=== PATIENT | female | born 1930 | race Caucasian/White ===

== ENCOUNTER → 2017-05-03 | Outpatient (CLI) | payer MEDICARE, OTHER ==
[2017-05-03 18:56] LABS: BUN 17 mg/dL (7-18)
[2017-05-03 18:57] LABS: GFR (ESTIMATED) 60 ML/MIN (59-)
--- NOTE | 2017-05-03 21:35 | RADIOLOGY REPORT PS360 ---
CHEST(2 VIEWS-NOT PORTABLE) COMPARISON: PA and lateral chest 11/02/2016 HISTORY: Amiodarone toxicity TECHNIQUE: PA and lateral chest FINDINGS: The lung tan are fairly well-expanded and appear clear of infiltrate. There is mild aortic tortuosity no cardiomegaly. Again noted is a moderate sized hiatal hernia seen to the cardiac shadow. Again noted is marked degenerative change of the right shoulder with prominent spurring of the inferior lip of the glenoid and spurring of the inferior aspect of the humeral head. There are subchondral cysts in the humeral head particularly near the greater tuberosity. There is a lateral downsloping acromion process and narrowing of the AC joint. There are mild degenerative change left shoulder. There is mild dextroscoliotic curvature of the thoracic spine. IMPRESSION: Stable moderate-sized hiatal hernia, no acute chest pathology noted. 2. 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
== END ==
LOC: LAB 16:00
PROVIDERS: Physician Assistant
DX: I48.91 Unspecified atrial fibrillation (principal); Z79.899 Other long term (current) drug therapy

== ENCOUNTER 2017-06-04 17:31 | Emergency (ER) | payer MEDICARE, OTHER ==
[~2017-06-04] VITALS: Ht 160 cm; Wt 68.0 kg
[~2017-06-04 17:31] MED LIST: ADOXA50 MG PO; ALPHAGAN P 0.1%; ARICEPT5 MG PO; ASPIRIN 325MG325 MG PO; ASPIRIN325 M1 PO; ATENOLOL25 M1 PO; ATENOLOL25 MG PO; ATORVASTATIN CA20 MG PO; BACTRIM DS 8001 TAB PO; BRIMONIDINE IO; BRIMONIDINE TARTRATE; CARVEDILOL3.125 MG PO; CIPRO 250MG TA250 MG PO; CIPRO 500MG TA500 MG PO; COUMADIN 2.5MG2.5 MG PO; Ciprofloxacin250 MG PO; DETROL2 MG PO; HYDROCODONE 7.51 TAB PO; KRISS PO; LANOXIN0.125 MG PO; LEVOTHYROXIN0.112 M1 PO; LEVOTHYROXINE0.1 M1 PO; LIPITOR80 M1 PO; LORTAB 5/500 501 TAB PO; MACROBID 100MG100 M1 PO; MACROBID 100MG100 MG PO; MOTRIN600 MG PO; NORCO 325 MG-101 TAB PO; NORCO 325 MG-51 TAB PO; OXYBUTYNIN CHLO10 MG PO; PLAVIX75 MG PO; PREDNISONE 20MG20 MG PO; PRILOSEC40 MG PO; PYRIDIUM 200MG200 MG PO; PYRIDIUM100 M1 PO; PYRIDIUM100 MG PO; ROBAXIN 500 MG500 MG PO; SERTRALINE25 MG PO; SERTRALINE50 MG PO; SULFAMETHOXAZOL1 TA6 PO; SYNTHROID0.112 M2 PO; TRAZODONE 50MG50 MG PO; VICODIN HP1 TAB PO; VITAMIN C500 M3 PO
[2017-06-04] MEDS ORDERED: ELIQUIS2.5 MG PO (17:43)
[2017-06-04 18:12] LABS: LYMPH # 1.4 K/mm3 (0.7-4.5); LYMPH % 26.3 % (10-50.0)
--- OUTSIDE RECORDS SUMMARY | 2017-06-04 18:15 | External Medical Summary Rpt ---
Author Author TIAN Connors, TIAN [employer] Address Unknown Phone Unavailable Results Comprehensive metabolic 2000 panel in Serum or Plasma Observa Value Referen Units Interpr Notes Date tion ce etation Range Albumin/G 1.1 - 1.8 No Normal No Oct 3 lobulin informati informati 2017 4:02 [Mass on in on in PM ratio] in source source Serum or data data Plasma Albumin 3.4 - 5.0 gm/dL Normal No Oct 3 [Mass/vol informati 2017 4:02 ume] in on in PM Serum or source Plasma data Alkaline 46 - 116 U/L Normal No Oct 3 phosphata informati 2017 4:02 se on in PM [Enzymati source c data activity/ volume] in Serum or Plasma Bilirubin 0.2 - 1.0 mg/dL Normal No Oct 3 .total informati 2017 4:02 [Mass/vol on in PM ume] in source Serum or data Plasma Urea 7 - 18 mg/dL Normal No Oct 3 nitrogen informati 2017 4:02 [Mass/vol on in PM ume] in source Serum or data Plasma Calcium 8.5 - mg/dL Normal No Oct 3 [Mass/vol 10.1 informati 2017 4:02 ume] in on in PM Serum or source Plasma data Chloride 98 - 107 mmoL/L Normal No Oct 3 [Moles/vo informati 2017 4:02 lume] in on in PM Serum or source Plasma data Carbon 21.0 - mmoL/L Normal No Oct 3 dioxide, 32.0 informati 2017 4:02 total on in PM [Moles/vo source lume] in data Serum or Plasma Creatinin 0.55 - mg/dL Normal No Oct 3 e 1.02 informati 2017 4:02 [Mass/vol on in PM ume] in source Serum or data Plasma Estimated 59- ML/MIN No REFERENCE Oct 3 informati RANGE: 2017 4:02 glomerula on in >60 PM r source ML/MIN/1. filtratio data 73 SQUARE n rate METERSIf (GF this patient is -A merican, then multiply theresult by 1.210. Globulin 1.3 - 3.2 gm/dL Normal No May 3 [Mass/vol informati 2016 4:02 ume] in on in PM Serum source data Glucose 74 - 106 mg/dL High No May 3 [Mass/vol informati 2016 4:02 ume] in on in PM Serum or source Plasma data Potassium 3.5 - 5.1 mmoL/L Normal No May 03 inform2016 4:02 [Moles/vo on in PM lume] in source Serum or data Plasma Sodium 136 - 145 mmoL/L Normal No May 03 [Moles/vo informati 2016 4:02 lume] in on in PM Serum or source Plasma data Aspartate 15 - 37 U/L Normal No May 03 inform2016 4:02 aminotran on in PM sferase source [Enzymati data c activity/ volume] in Serum or Plasma Alanine 12 - 78 U/L Normal No May 03 aminotran informati 2016 4:02 sferase on in PM [Enzymati source c data activity/ volume] in Serum or Plasma Protein 6.4 - 8.2 gm/dL Normal No May 03 [Mass/vol informati 2016 4:02 ume] in on in PM Serum or source Plasma data Thyroxine (T4) free [Mass/volume] in Serum or Plasma Observa Value Referen Units Interpr Notes Date tion ce etation Range Thyroxine 0.76 - ng/dL Normal No May 03 (T4) 1.46 informati 2016 4:02 free on in PM [Mass/vol source ume] in data Serum or Plasma Thyrotropin [Units/volume] in Serum or Plasma Observa Value Referen Units Interpr Notes Date tion ce etation Range Thyrotrop 0.358 - uIU/ml No No May 3 in 3.740 informati informati 2017 4:02 [Units/vo on in on in PM lume] in source source Serum or data data Plasma
--- OUTSIDE RECORDS SUMMARY | 2017-06-04 18:15 | External Medical Summary Rpt | CCD ---
Author Author , TIAN Organization TIAN Address Unknown Phone [email or web address] Care Team Providers Care Focuser Name Role Phone ABIGAIL HAMEED MD, Unavailable Unavailable ABIGAIL Marlow MD, Unavailable Unavailable Luigi Marlow MD Purpose Continuity of Care Document - 02-25-2013 through 2016 Problems Code Diagnosis DOS Provider Status 305.00 305.00 03-19-2013 [facility] C 401.9 401.9 03-19-2013 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 Ac 2% ti ve EY E DR OP AT 51 10 0 No EN 07 -2 OL 90 9- Lo OL 75 20 ng 92 13 er 25 0 Ac MG ti ve TA BL ET SY 00 10 0 No NT 07 -2 HR 49 9- Lo OI 29 20 ng D 69 13 er 11 0 2 Ac MC ti G ve TA BL ET 16 10 0 No PI 10 -2 RI 30 9- Lo N 35 20 ng EC 60 13 er 9 81 Ac ti MG ve TA BL ET DI 00 10 0 No LT 40 -2 IA 94 8- Lo ZE 35 20 ng M 00 13 er HC 3 L Ac 10 ti 0 ve MG AL SO 00 10 0 No DI 40 -2 UM 97 8- Lo 10 20 ng CH 16 13 er LO 7 RI Ac DE ti ve 0. 9% SO LN Sa 63 10 1 No li 80 -2 ne 70 8- Lo 10 20 ng Fl 07 13 er us 5 h Ac 10 ti ML ve Sy ri ng e Di 55 10 0 No lt 39 -2 ia 00 8- Lo ze 56 20 ng m 60 13 er 25 5 MG Ac /5 ti ML ve Vi al AT 51 10 0 No EN 07 -2 OL 90 8- Lo OL 75 20 ng 92 13 er 25 0 Ac MG ti ve TA BL ET 66 10 1 No PI 55 -2 RI 30 8- Lo N 00 20 ng 32 10 13 er 5 1 MG Ac ti TA ve BL ET DE 00 10 1 No TR 00 -2 OL 94 8- Lo 1 54 20 ng 10 13 er MG 2 Ac TA ti BL ve ET SE 59 10 1 No RT 76 -2 RA 24 8- Lo LI 90 20 ng NE 00 13 er 3 HC Ac L ti 50 ve MG TA BL ET TR 00 10 1 No AZ 90 -2 OD 43 8- Lo ON 99 20 ng E 06 13 er 50 1 Ac MG ti ve TA BL ET Sa 63 08 0 No li 80 -1 ne 70 9- Lo 10 20 ng Fl 07 13 er us 5 h Ac 10 ti ML ve Sy ri ng e KE 00 08 0 No TO 40 -1 RO 93 9- Lo LA 79 20 ng C 50 13 er 30 1 Ac MG ti /M ve L AL Vital Signs 05-29-2013 15:23 Name Value Interpretat Reference Comment ion Range Body 97.2 [degF] Temperature BP 78 mm[Hg] Diastolic BP Systolic 142 mm[Hg] Heart 82 /min Rate/Pulse Respiratory 18 /min Rate 05-29-2013 15:20 Name Value Interpretat Reference Comment ion Range O2% 97 % 05-28-2013 16:47 Name Value Interpretat Reference Comment ion Range Height 162.56 cm Weight 82.356 kg Measured 05-28-2013 10:04 Name Value Interpretat Reference Comment ion Range Body 98.5 [degF] Temperature BP 80 mm[Hg] Diastolic BP Systolic 129 mm[Hg] Heart 121 /min Rate/Pulse O2% 96 % Respiratory 20 /min Rate Weight 0 [oz_av] Measured 03-19-2013 15:31 Name Value Interpretat Reference Comment ion Range Body 97.7 [degF] Temperature BP 81 mm[Hg] Diastolic BP Systolic 144 mm[Hg] Heart 50 /min Rate/Pulse O2% 98 % Respiratory 20 /min Rate 03-19-2013 14:38 Name Value Interpretat Reference Comment ion Range BP 68 mm[Hg] Diastolic BP Systolic 141 mm[Hg] Heart 46 /min Rate/Pulse O2% 98 % Respiratory 17 /min Rate 02-25-2013 13:15 Name Value Interpretat Reference Comment ion Range Body 98.5 [degF] Temperature BP 85 mm[Hg] Diastolic BP Systolic 152 mm[Hg] Heart 51 /min Rate/Pulse O2% 97 % Respiratory 16 /min Rate Results Labs Lab Lab Date Result Refere Interp Status Commen Order Detail nces retati t Range on Bas Metab 2000 Pnl SerPl (09-21-2016 11:33) Comment: Verify with Lab Meter: [id number] Desk Operator: [id number] Ramona Bates Glucose 107 70-130 complet BldC 017 mg/dL ed Glucomt 11:33 r-mCnc Bas Metab 2000 Pnl SerPl (09-21-2016 07:37) Comment: Verify with Lab Meter: [id number] Desk Operator: [id number] Esa Casper Glucose 93 70-130 complet BldC 017 mg/dL ed Glucomt 07:37 r-mCnc Bas Metab 1999 Pnl SerPl (09-20-2016 20:59) Comment: Meter: [id number] Desk Operator: [id number] Denver Reyes Glucose 111 70-130 complet BldC 017 mg/dL ed Glucomt 20:59 r-mCnc Bas Metab 2000 Pnl SerPl (09-20-2016 16:36) Comment: Meter: [id number] Desk Operator: [id number] Erick Szymanski Glucose 103 70-130 complet BldC 017 mg/dL ed Glucomt 16:36 r-mCnc Bas Metab 2000 Pnl SerPl (09-20-2016 12:12) Comment: Meter: [id number] Desk Operator: [id number] Erick Szymanski Glucose 104 70-130 complet BldC 017 mg/dL ed Glucomt 12:12 r-mCnc Bas Metab 1999 Pnl SerPl (09-20-2016 07:55) Comment: Meter: [id number] Desk Operator: [id number] Erick Szymanski Glucose 107 70-130 complet BldC 017 mg/dL ed Glucomt 07:55 r-mCnc Bas Metab 1999 Pnl SerPl (09-19-2016 20:45) Comment: Meter: [id number] Desk Operator: [id number] Denver Reyes Glucose 116 70-130 complet BldC 017 mg/dL ed Glucomt 20:45 r-mCnc Bas Metab 1999 Pnl SerPl (09-19-2016 16:39) Comment: Meter: [id number] Desk Operator: [id number] Bita Cruz Glucose 108 70-130 complet BldC 017 mg/dL ed Glucomt 16:39 r-mCnc Bas Metab 1999 Pnl SerPl (09-19-2016 11:33) Comment: Meter: [id number] Desk Operator: [id number] Bita Cruz Glucose 147 70-130 complet BldC 017 mg/dL ed Glucomt 11:33 r-mCnc Bas Metab 1999 Pnl SerPl (09-19-2016 07:48) Comment: Meter: [id number] Desk Operator: [id number] Bita Cruz Glucose 109 70-130 complet BldC 017 mg/dL ed Glucomt 07:48 r-mCnc Hgb+Hct Pnl Bld (09-19-2016 05:11) Hct VFr 30.1 % 34.5-44 complet Bld 017 .0 ed Auto 05:11 Hgb 9.6 11.5-15 complet Bld-mCn 017 g/dL .5 ed c 05:11 Bas Metab 2000 Pnl SerPl (09-18-2016 20:25) Comment: Meter: [id number] Desk Operator: [id number] Stacey Peterson Glucose 122 70-130 complet BldC 017 mg/dL ed Glucomt 20:25 r-mCnc Bas Metab 1999 Pnl SerPl (09-18-2016 15:57) Comment: Meter: [id number] Desk Operator: [id number] Troy Bergla D Glucose 131 70-130 complet BldC 017 mg/dL ed Glucomt 15:57 r-nc Bas Metab 1999 Pnl SerPl (09-18-2016 11:27) Comment: Meter: [id number] Desk Operator: [id number] Troy Bergla D Glucose 155 70-130 complet BldC 017 mg/dL ed Glucomt 11:27 r-nc Bas Metab 1999 Pnl SerPl (09-18-2016 06:55) Comment: Meter: [id number] Desk Operator: [id number] Troy Bergla D Glucose 144 70-130 complet BldC 017 mg/dL ed Glucomt 06:55 r-[facility] CBC (hemogram) Bld Auto (09-18-2016 05:21) Platele 185 150-450 complet t # Bld 017 10*3/mm ed Auto 05:21 3 PMV Bld 18-2 10.6 fL 6.0-12. complet Auto 017 0 ed 05:21 RDW RBC -18-2 50.0 fl 37.0-54 complet Auto 017 .0 ed 05:21 RDW RBC -18-2 14.0 % 11.3-14 complet 017 .5 ed Auto-Rt 05:21 o MCHC -18-2 32.5 32.0-36 complet RBC 017 g/dL .0 ed Auto-mC 05:21 nc MCH RBC 18-2 31.8 pg 27.0-31 complet Qn 017 .0 ed Auto 05:21 MCV RBC 18-2 97.6 fL 80.0-99 complet Auto 017 .0 ed 05:21 Hct VFr 18-2 32.9 % 34.5-44 complet Bld 017 .0 ed Auto 05:21 Hgb -18-2 10.7 11.5-15 complet Bld-mCn 017 g/dL .5 ed c 05:21 RBC # 02-18-2 3.37 3.89-5. complet Bld 017 10*6/mm 14 ed Auto 05:21 3 WBC -18-2 10.53 3.50-10 complet nRBC 017 10*3/mm .80 ed cor # 05:21 3 Bld Bas Metab 1999 Pnl SerPl (09-18-2016 05:21) Comment: [employer] Guidelines Comment: Comment: Stage Description GFR Comment: 1 Normal or High 90+ Comment: 2 Mild decrease 60-89 Comment: 3 Moderate decrease 30-59 Comment: 4 Severe decrease 15-29 Comment: 5 Kidney failure <15 Anion 18-2 4.0 3.0-11. complet Gap3 017 mmol/L 0 ed SerPl-s 05:21 Cnc BUN/Cre 15.7 7.0-25. complet at 017 0 ed SerPl 05:21 GFR/BSA 80 >60 complet .pred 017 mL/min/ ed SerPl 05:21 1.73 MDRD-Ar VRat Calcium 8.7 8.7-10. complet 017 mg/dL 4 ed XXX-sCn 05:21 c CO2 29.0 20.0-31 complet SerPl-s 017 mmol/L .0 ed Cnc 05:21 Chlorid 103 99-109 complet e 017 mmol/L ed SerPl-s 05:21 Cnc Potassi 4.2 3.5-5.5 complet um 017 mmol/L ed Bld-sCn 05:21 c Sodium 09-18- 136 132-146 complet Bld-sCn 017 mmol/L ed c 05:21 Creat 0.70 0.60-1. complet Bld-mCn 017 mg/dL 30 ed c 05:21 BUN 09-18- 11 9-23 complet Bld-mCn 017 mg/dL ed c 05:21 Glucose 09-18- 175 70-100 complet 017 mg/dL ed Bld-mCn 05:21 c Bas Metab 1999 Pnl SerPl (09-17-2016 21:24) Comment: Meter: [id number] Desk Operator: [id number] Garrettrvteaganu Claire Glucose 219 70-130 complet BldC 017 mg/dL ed Glucomt 21:24 r-mCnc Bas Metab 1999 Pnl SerPl (09-17-2016 18:26) Comment: Meter: [id number] Desk Operator: [id number] Niya Bell Glucose 150 70-130 complet BldC 017 mg/dL ed Glucomt 18:26 r-mCnc Bacteria Tiss Aerobe Cult (09-17-2016 11:32) Gram No complet Stn XXX 017 organis ed 11:32 ms seen Gram Occasio complet Stn XXX 017 nal ed 11:32 WBCs seen Bacteri No complet a XXX 017 growth ed Aerobe 11:32 at 14 Cult days Potassium Bld-sCnc (09-17-2016 10:04) Potassi 3.92 3.5-5.3 complet um 017 mmol/L ed BldA-sC 10:04 nc UA Dipstick Pnl Ur (09-02-2016 16:18) Comment: Urine microscopic not indicated. Urobili 0.2 0.2 - complet nogen 017 E.U./dL 1.0 ed Ur Ql 16:18 E.U./dL Strip Nitrite [id number] Negativ complet Ur Ql 017 09 e ed Strip 16:18 Negativ e SCT Leukocy [id number] Negativ complet te 017 09 e ed esteras 16:18 Negativ e Ur Ql e SCT Strip.a uto Prot Ur [id number] Negativ complet Ql 017 09 e ed Strip 16:18 Negativ e SCT Hgb Ur [id number] Negativ complet Ql 017 09 e ed Strip.a 16:18 Negativ uto e SCT Bilirub [id number] Negativ complet Ur Ql 017 09 e ed Strip 16:18 Negativ e SCT Ketones 3908850 Negativ complet Ur Ql 017 09 e ed Strip 16:18 Negativ e SCT Glucose 9634048 Negativ complet Ur 017 09 e ed Strip-m 16:18 Negativ Cnc e SCT Sp Gr 1.007 1.001-1 complet Ur 017 .030 ed Strip 16:18 pH Ur 5.5 5.0-8.0 complet Strip.a 017 ed uto 16:18 Clarity [id number] Clear complet Ur 017 01 ed 16:18 Clear SCT Color [id number] Yellow, complet Ur 017 09 Straw ed 16:18 Yellow color SCT Hgb A1c Bld (09-02-2016 12:16) Comment: The [place] [employer] recommends maintenance of Hemoglobin A1C at 7.0% or lower. Goals for Hemoglobin A1C reduction may need to be modified if hypoglycemia is a problem. Hgb A1c 5.90 % 4.80-5. complet MFr 017 60 ed Bld 12:16 Bas Metab 2000 Pnl SerPl (09-02-2016 12:16) Comment: National [employer] Guidelines Comment: Comment: Stage Description GFR Comment: 1 Normal or High 90+ Comment: 2 Mild decrease 60-89 Comment: 3 Moderate decrease 30-59 Comment: 4 Severe decrease 15-29 Comment: 5 Kidney failure <15 Anion 3.0 3.0-11. complet Gap3 017 mmol/L 0 ed SerPl-s 12:16 Cnc BUN/Cre 24.0 7.0-25. complet at 017 0 ed SerPl 12:16 GFR/BSA 53 >60 complet .pred 017 mL/min/ ed SerPl 12:16 1.73 MDRD-Ar VRat Calcium 10.3 8.7-10. complet 017 mg/dL 4 ed XXX-sCn 12:16 c CO2 33.0 20.0-31 complet SerPl-s 017 mmol/L .0 ed Cnc 12:16 Chlorid 100 99-109 complet e 017 mmol/L ed SerPl-s 12:16 Cnc Potassi 4.6 3.5-5.5 complet um 017 mmol/L ed Bld-sCn 12:16 c Sodium 136 132-146 complet Bld-sCn 017 mmol/L ed c 12:16 Creat 1.00 0.60-1. complet Bld-mCn 017 mg/dL 30 ed c 12:16 BUN 24 9-23 complet Bld-mCn 017 mg/dL ed c 12:16 Glucose 66 70-100 complet 017 mg/dL ed Bld-mCn 12:16 c UA Dipstick Pnl Ur (09-02-2016 12:16) Urobili 0.2 0.2 - complet nogen 017 E.U./dL 1.0 ed Ur Ql 12:16 E.U./dL Strip Nitrite [id number] Negativ complet Ur Ql 017 09 e ed Strip 12:16 Negativ e SCT Leukocy 4244638 Negativ complet te 017 04 e ed esteras 12:16 Small e Ur Ql SCT Strip.a uto Prot Ur 3212489 Negativ complet Ql 017 09 e ed Strip 12:16 Negativ e SCT Hgb Ur 8324064 Negativ complet Ql 017 09 e ed Strip.a 12:16 Negativ uto e SCT Bilirub 3062223 Negativ complet Ur Ql 017 09 e ed Strip 12:16 Negativ e SCT Ketones 0152964 Negativ complet Ur Ql 017 09 e ed Strip 12:16 Negativ e SCT Glucose 4224465 Negativ complet Ur 017 09 e ed Strip-m 12:16 Negativ Cnc e SCT Sp Gr 1.007 1.001-1 complet Ur 017 .030 ed Strip 12:16 pH Ur <= 5.0 5.0-8.0 complet Strip.a 017 ed uto 12:16 Clarity [id number] Clear complet Ur 017 01 ed 12:16 Clear SCT Color 5126532 Yellow, complet Ur 017 09 Straw ed 12:16 Yellow color SCT UA Microscopic Pnl # Ur Auto (09-02-2016 12:16) Ref lab Automat complet test 017 ed ed method 12:16 Microsc opy Hyaline 0-6 0-6 complet Casts 017 /LPF ed Ur Ql 12:16 Auto [place] None None complet s 017 Seen Seen, ed #/area 12:16 /HPF 0-2 UrnS HPF Bacteri [id number] None complet a Ur Ql 017 00 Not Seen, ed Auto 12:16 detecte Trace d SCT /HPF WBC Ur 02-02-2 3-5 None complet Ql Auto 017 /HPF Seen ed 12:16 RBC # 02-02-2 0-2 None complet Ur 017 /HPF Seen, ed 12:16 0-2 CBC (hemogram) Bld Auto (09-02-2016 12:16) Platele 09-02-2 213 150-450 complet t # Bld 017 10*3/mm ed Auto 12:16 3 PMV Bld 09-02-2 10.5 fL 6.0-12. complet Auto 017 0 ed 12:16 RDW RBC 02-02-2 49.9 fl 37.0-54 complet Auto 017 .0 ed 12:16 RDW RBC 02-02-2 13.9 % 11.3-14 complet 017 .5 ed Auto-Rt 12:16 o MCHC -02-2 32.9 32.0-36 complet RBC 017 g/dL .0 ed Auto-mC 12:16 nc MCH RBC -02-2 32.1 pg 27.0-31 complet Qn 017 .0 ed Auto 12:16 MCV RBC -02-2 97.7 fL 80.0-99 complet Auto 017 .0 ed 12:16 Hct VFr 09-02-2 43.2 % 34.5-44 complet Bld 017 .0 ed Auto 12:16 Hgb -02-2 14.2 11.5-15 complet Bld-mCn 017 g/dL .5 ed c 12:16 RBC # 02-02-2 4.42 3.89-5. complet Bld 017 10*6/mm 14 ed Auto 12:16 3 WBC --2 5.68 3.50-10 complet nRBC 017 10*3/mm .80 ed cor # 12:16 3 Bld COMPREHENSIVE METABOLIC PANEL (05-28-2013 10:20) Glucose 94 74-106 complet 013 mg/dL ed Bld-mCn 10:20 c BUN 13 7-18 complet Bld-mCn 013 mg/dL ed c 10:20 Creat 0.9 0.6-1.0 complet SerPl-m 013 mg/dL ed Cnc 10:20 ESTIMAT 63 50-200 complet ED 013 ML/MIN ed CREATIN 10:20 INE CLEARAN CE GFR 60 59- complet (ESTIMA 013 ML/MIN ed BHARTI) 10:20 Sodium 141 136-145 complet SerPl-s 013 mmoL/L ed Cnc 10:20 Potassi 4.2 3.5-5.1 complet um 013 mmoL/L ed SerPl-s 10:20 Cnc Chlorid 105 98-107 complet e 013 mmoL/L ed SerPl-s 10:20 Cnc CO2 29 21.0-32 complet SerPl-s 013 mmoL/L .0 ed Cnc 10:20 Calcium 8.9 8.5-10. complet 013 mg/dL 1 ed SerPl-m 10:20 Cnc Prot 6.9 6.4-8.2 complet SerPl-m 013 gm/dL ed Cnc 10:20 Albumin 3.3 3.4-5.0 complet 013 gm/dL ed SerPl-m 10:20 Cnc Globuli 3.6 1.3-3.2 complet n 013 gm/dL ed Ser-mCn 10:20 c Albumin 0.9 UNK 1.1-1.8 complet /Glob 013 ed SerPl-m 10:20 Rto Bilirub 0.5 0.2-1.0 complet 013 mg/dL ed SerPl-m 10:20 Cnc AST 21 U/L 15-37 complet SerPl-c 013 ed Cnc 10:20 ALT 30 U/L 30-65 complet SerPl-c 013 ed Cnc 10:20 ALP 118 U/L 50-136 complet SerPl-c 013 ed Cnc 10:20 THYROID STIM HORMONE (05-28-2013 10:20) THYROID 3.27 0.358-3 complet STIM 013 uIU/ml .740 ed HORMONE 10:20 BNP Bld-mCnc (05-28-2013 10:20) BNP 152 0-100 complet Bld-mCn 013 pg/mL ed c 10:20 CBC with AUTO DIFF (05-28-2013 10:20) WBC # 10--2 4.3 4.8-10. complet Bld 013 K/MM3 8 ed Auto 10:20 RBC # 05-28-2 4.19 4.2-5.4 complet Bld 013 M/mm3 ed Auto 10:20 Hgb 05-28-2 12.3 12.2-16 complet Bld-mCn 013 g/dL .2 ed c 10:20 Hct Fr 38.5 % 37.0-47 complet Bld 013 .0 ed 10:20 MCV RBC 92.0 fl 82.2-97 complet 013 .8 ed 10:20 MCH RBC 29.3 pg 27-31.2 complet Qn 013 ed Auto 10:20 MEAN 31.8 31.8-35 complet CORPUSC 013 g/dl .4 ed ULAR 10:20 HGB CONC RDW RBC 15.5 % 11.5-17 complet Auto 013 .5 ed 10:20 Platele 239 142-424 complet t Bld 013 K/mm3 ed Ql 10:20 Manual MEAN 7.6 fl 7.4-10. complet PLATELE 013 4 ed T 10:20 VOLUME Granulo 05-28-2 55.4 % 37.0-80 complet cytes 013 .0 ed Fr Bld 10:20 Auto LYMPH % 05-28-2 29.4 % 10-50.0 complet 013 ed 10:20 Monocyt 05-28-2 9.0 % 1.7-9.3 complet es Fr 013 ed Bld 10:20 Auto Eosinop 05-28-2 4.8 % 0.1-12. complet hil Fr 013 0 ed Bld 10:20 Auto Basophi 05-28-2 1.4 % 0.1-2.0 complet ls Fr 013 ed Bld 10:20 Auto Granulo 05-28-2 2.4 1.8-7.8 complet cytes # 013 K/mm3 ed Bld 10:20 Auto Lymphoc 05-28-2 1.3 0.7-4.5 complet ytes Fr 013 K/mm3 ed Bld 10:20 Auto Monocyt 05-28-2 0.4 0.1-1.0 complet es # 013 K/mm3 ed Bld 10:20 Auto Eosinop 28-2 0.2 0.0-0.4 complet hil # 013 K/mm3 ed Bld 10:20 Auto Basophi 28-2 0.1 0-0.2 complet ls # 013 K/MM3 ed Bld 10:20 Auto COMPREHENSIVE METABOLIC PANEL (03-19-2013 13:45) Glucose 03-19-2 90 74-106 complet 013 mg/dL ed Bld-mCn 13:45 c BUN 03-19-2 10 7-18 complet Bld-mCn 013 mg/dL ed c 13:45 Creat 03-19-2 0.9 0.6-1.0 complet SerPl-m 013 mg/dL ed Cnc 13:45 ESTIMAT 03-19-2 65 50-200 complet ED 013 ML/MIN ed CREATIN 13:45 INE CLEARAN CE GFR 60 59- complet (ESTIMA 013 ML/MIN ed BHARTI) 13:45 Sodium 139 136-145 complet SerPl-s 013 mmoL/L ed Cnc 13:45 Potassi 4.0 3.5-5.1 complet um 013 mmoL/L ed SerPl-s 13:45 Cnc Chlorid 03-19- 103 98-107 complet e 013 mmoL/L ed SerPl-s 13:45 Cnc CO2 03-19- 31 21.0-32 complet SerPl-s 013 mmoL/L .0 ed Cnc 13:45 Calcium 03-19-2 8.7 8.5-10. complet 013 mg/dL 1 ed SerPl-m 13:45 Cnc Prot 03-19-2 7.4 6.4-8.2 complet SerPl-m 013 gm/dL ed Cnc 13:45 Albumin 03-19-2 3.5 3.4-5.0 complet 013 gm/dL ed SerPl-m 13:45 Cnc Globuli 03-19-2 3.9 1.3-3.2 complet n 013 gm/dL ed Ser-mCn 13:45 c Albumin 03-19-2 0.9 UNK 1.1-1.8 complet /Glob 013 ed SerPl-m 13:45 Rto Bilirub 03-19-2 0.6 0.2-1.0 complet 013 mg/dL ed SerPl-m 13:45 Cnc AST -19-2 18 U/L 15-37 complet SerPl-c 013 ed Cnc 13:45 ALT 08-19-2 30 U/L 30-65 complet SerPl-c 013 ed Cnc 13:45 ALP -19-2 133 U/L 50-136 complet SerPl-c 013 ed Cnc 13:45 CBC with AUTO DIFF (03-19-2013 13:45) WBC # 08-19-2 4.5 4.8-10. complet Bld 013 K/MM3 8 ed Auto 13:45 RBC # 08-19-2 4.24 4.2-5.4 complet Bld 013 M/mm3 ed Auto 13:45 Hgb 08-19-2 12.4 12.2-16 complet Bld-mCn 013 g/dL .2 ed c 13:45 Hct Fr 03-19-2 38.6 % 37.0-47 complet Bld 013 .0 ed 13:45 MCV RBC 19-2 91.2 fl 82.2-97 complet 013 .8 ed 13:45 MCH RBC 03-19-2 29.2 pg 27-31.2 complet Qn 013 ed Auto 13:45 MEAN -19-2 32.0 31.8-35 complet CORPUSC 013 g/dl .4 ed ULAR 13:45 HGB CONC RDW RBC -19-2 14.5 % 11.5-17 complet Auto 013 .5 ed 13:45 Platele -19-2 255 142-424 complet t Bld 013 K/mm3 ed Ql 13:45 Manual MEAN 03-19-2 7.7 fl 7.4-10. complet PLATELE 013 4 ed T 13:45 VOLUME Granulo -19-2 58.4 % 37.0-80 complet cytes 013 .0 ed Fr Bld 13:45 Auto LYMPH % -19-2 29.3 % 10-50.0 complet 013 ed 13:45 Monocyt 08-19-2 7.3 % 1.7-9.3 complet es Fr 013 ed Bld 13:45 Auto Eosinop -19-2 3.5 % 0.1-12. complet hil Fr 013 0 ed Bld 13:45 Auto Basophi -19-2 1.4 % 0.1-2.0 complet ls Fr 013 ed Bld 13:45 Auto Granulo 08-19-2 2.6 1.8-7.8 complet cytes # 013 K/mm3 ed Bld 13:45 Auto Lymphoc -19-2 1.3 0.7-4.5 complet ytes Fr 013 K/mm3 ed Bld 13:45 Auto Monocyt 08-19-2 0.3 0.1-1.0 complet es # 013 K/mm3 ed Bld 13:45 Auto Eosinop -19-2 0.2 0.0-0.4 complet hil # 013 K/mm3 ed Bld 13:45 Auto Basophi -19-2 0.1 0-0.2 complet ls # 013 K/MM3 ed Bld 13:45 Auto URINALYSIS/COMPLETE (02-25-2013 12:30) URINE 02-25-2 YELLOW YELLOW complet COLOR 013 ed 12:30 URINE 02-25-2 Sl CLEAR complet APPEARA 013 Cloudy ed NCE 12:30 URINE 02-25-2 NEGATIV NEG complet GLUCOSE 013 E ed - 12:30 DIPSTIC K URINE 02-25-2 NEGATIV NEG complet BILIRUB 013 E ed IN - 12:30 DIPSTIC K URINE 02-25-2 NEGATIV NEG complet KETONE 013 E mg/dL ed 12:30 URINE 02-25-2 Less 1.005-1 complet SPECIFI 013 than or .030 ed C 12:30 equal GRAVITY to 1.005 URINE 02-25-2 NEGATIV NEG complet BLOOD 013 E ed 12:30 URINE 02-25-2 6.0 UNK 5.0-8.5 complet PH 013 ed 12:30 URINE 02-25-2 NEGATIV NEG complet PROTEIN 013 E mg/dL ed - 12:30 DIPSTIC K URINE 02-25-2 0.2 NEG complet UROBILI 013 E.U./dL ed NOGEN - 12:30 DIPSTIC K URINE 02-25-2 NEGATIV NEG complet NITRATE 013 E ed - 12:30 DIPSTIC K URINE 02-25-2 2+ NEG complet LEUK 013 ed ESTERAS 12:30 E Encounters Encounter Start End Date Code Location Performer Type Date Inpatient IMP Mykel Ele ([place]) 3 10:31 3 15:27 [facility] Emergency ROSALBA HAMEED (ER) 3 13:53 3 15:37 [facility] Emergency ROSALBA Lucero (ER) 3 12:49 3 13:21 [facility] [place]
--- OUTSIDE RECORDS SUMMARY | 2017-06-04 18:15 | External Medical Summary Rpt | CCD ---
Demographics Preferred Language Salvadorean Marital Status Unknown Scientologist Affiliation Unknown Race Unknown Ethnic Group Unknown Author Author , TIAN OVERTON Address Unknown Phone Immunization Unable to retrieve immunization data due to connection failure with Immunization Registry. Please try again later.
--- OUTSIDE RECORDS SUMMARY | 2017-06-04 18:15 | External Medical Summary Rpt | CCD ---
Author Author [employer]ent Organization Con[employer] Address Unknown Phone Unavailable Purpose Continuity of Care Document - through 2016
--- OUTSIDE RECORDS SUMMARY | 2017-06-04 18:15 | External Medical Summary Rpt | CCD ---
Demographics Preferred Language Djiboutian Marital Status Unknown Hindu Affiliation Unknown Race Unknown Ethnic Group Unknown Author Author , TIAN OVERTON Address Unknown Phone Immunization Unable to retrieve immunization data due to connection failure with Immunization Registry. Please try again later.
--- OUTSIDE RECORDS SUMMARY | 2017-06-04 18:15 | External Medical Summary Rpt | CCD ---
Author Author , TIAN Organization TIAN Address Unknown Phone [email or web address] Care Team Providers Care Press Department Manager Name Role Phone ABIGAIL HAMEED MD, Unavailable Unavailable ABIGAIL Marlow MD, Unavailable Unavailable Luigi Marlow MD Purpose Continuity of Care Document - 02-25-2013 through 2016 Problems Code Diagnosis DOS Provider Status 305.00 305.00 03-19-2013 [facility] C 401.9 401.9 03-19-2013 [facility] 427.89 427.89 03-19-2013 [facility] DYSRHYTHMIA [facility] S NEC 733.6 733.6 03-19-2013 [facility] 244.9 Hypothyroid [facility] 272.4 Hyperlipide [facility] [id number] History of [facility] [id number] Active [facility] [id number] Chronic [facility] Allergies, Adverse Reactions, Alerts Type Drug Allergy [...] (09-21-2016 11:33) Comment: Verify with Lab Meter: [id number] Box Sealing Inspector: [id number] Ramona Bates Glucose 107 70-130 complet BldC 017 mg/dL ed Glucomt 11:33 r-mCnc Bas Metab 2000 Pnl SerPl (09-21-2016 07:37) Comment: Verify with Lab Meter: [id number] Box Sealing Inspector: [id number] Esa Casper Glucose 93 70-130 complet BldC 017 mg/dL ed Glucomt 07:37 r-mCnc Bas Metab 1999 Pnl SerPl (09-20-2016 20:59) Comment: Meter: [id number] Box Sealing Inspector: [id number] Denver Reyes Glucose 111 70-130 complet BldC 017 mg/dL ed Glucomt 20:59 r-mCnc Bas Metab 2000 Pnl SerPl (09-20-2016 16:36) Comment: Meter: [id number] Box Sealing Inspector: [id number] Erick Szymanski Glucose 103 70-130 complet BldC 017 mg/dL ed Glucomt 16:36 r-mCnc Bas Metab 2000 Pnl SerPl (09-20-2016 12:12) Comment: Meter: [id number] Box Sealing Inspector: [id number] Erick Szymanski Glucose 104 70-130 complet BldC 017 mg/dL ed Glucomt 12:12 r-mCnc Bas Metab 1999 Pnl SerPl (09-20-2016 07:55) Comment: Meter: [id number] Box Sealing Inspector: [id number] Erick Szymanski Glucose 107 70-130 complet BldC 017 mg/dL ed Glucomt 07:55 r-mCnc Bas Metab 1999 Pnl SerPl (09-19-2016 20:45) Comment: Meter: [id number] Box Sealing Inspector: [id number] Denver Reyes Glucose 116 70-130 complet BldC 017 mg/dL ed Glucomt 20:45 r-mCnc Bas Metab 1999 Pnl SerPl (09-19-2016 16:39) Comment: Meter: [id number] Box Sealing Inspector: [id number] Bita Cruz Glucose 108 70-130 complet BldC 017 mg/dL ed Glucomt 16:39 r-mCnc Bas Metab 1999 Pnl SerPl (09-19-2016 11:33) Comment: Meter: [id number] Box Sealing Inspector: [id number] Bita Cruz Glucose 147 70-130 complet BldC 017 mg/dL ed Glucomt 11:33 r-mCnc Bas Metab 1999 Pnl SerPl (09-19-2016 07:48) Comment: Meter: [id number] Box Sealing Inspector: [id number] Bita Cruz Glucose 109 70-130 complet BldC 017 mg/dL ed Glucomt 07:48 r-mCnc Hgb+Hct Pnl Bld (09-19-2016 05:11) Hct VFr 30.1 % 34.5-44 complet Bld 017 .0 ed Auto 05:11 Hgb 9.6 11.5-15 complet Bld-mCn 017 g/dL .5 ed c 05:11 Bas Metab 2000 Pnl SerPl (09-18-2016 20:25) Comment: Meter: [id number] Box Sealing Inspector: [id number] Stacey Peterson Glucose 122 70-130 complet BldC 017 mg/dL ed Glucomt 20:25 r-mCnc Bas Metab 1999 Pnl SerPl (09-18-2016 15:57) Comment: Meter: [id number] Box Sealing Inspector: [id number] Troy Bergla D Glucose 131 70-130 complet BldC 017 mg/dL ed Glucomt 15:57 r-nc Bas Metab 1999 Pnl SerPl (09-18-2016 11:27) Comment: Meter: [id number] Box Sealing Inspector: [id number] Troy Bergla D Glucose 155 70-130 complet BldC 017 mg/dL ed Glucomt 11:27 r-nc Bas Metab 1999 Pnl SerPl (09-18-2016 06:55) Comment: Meter: [id number] Box Sealing Inspector: [id number] Troy Bergla D Glucose 144 70-130 complet BldC 017 mg/dL ed Glucomt 06:55 r-[facility] CBC (hemogram) Bld Auto (09-18-2016 05:21) Platele [...] 1999 Pnl SerPl (09-17-2016 21:24) Comment: Meter: [id number] Box Sealing Inspector: [id number] Garrettrvteaganu Claire Glucose 219 70-130 complet BldC 017 mg/dL ed Glucomt 21:24 r-mCnc Bas Metab 1999 Pnl SerPl (09-17-2016 18:26) Comment: Meter: [id number] Box Sealing Inspector: [id number] Niya Bell Glucose 150 70-130 complet BldC [...] ed Ur Ql 16:18 E.U./dL Strip Nitrite 8251506 Negativ complet Ur Ql 017 09 e ed Strip 16:18 Negativ e SCT Leukocy 4203548 Negativ complet te 017 09 e ed esteras 16:18 Negativ e Ur Ql e SCT Strip.a uto Prot Ur 8244448 Negativ complet Ql 017 09 e ed Strip 16:18 Negativ e SCT Hgb Ur 7668558 Negativ complet Ql 017 09 e ed Strip.a 16:18 Negativ uto e SCT Bilirub 3462105 Negativ complet Ur Ql 017 09 e ed Strip 16:18 Negativ e SCT Ketones 4064970 Negativ complet Ur Ql 017 09 e ed Strip 16:18 Negativ e SCT Glucose 9364645 Negativ complet Ur 017 09 e ed Strip-m 16:18 Negativ Cnc e SCT Sp Gr 1.007 1.001-1 complet Ur 017 .030 ed Strip 16:18 pH Ur 5.5 5.0-8.0 complet Strip.a 017 ed uto 16:18 Clarity 4596883 Clear complet Ur 017 01 ed 16:18 Clear SCT Color 7749171 Yellow, complet Ur 017 09 Straw ed 16:18 Yellow color SCT Hgb A1c Bld (09-02-2016 12:16) Comment: The [place] [employer] recommends maintenance of Hemoglobin A1C [...] ed Ur Ql 12:16 E.U./dL Strip Nitrite 4792913 Negativ complet Ur Ql 017 09 e ed Strip 12:16 Negativ e SCT Leukocy 4535315 Negativ complet te 017 04 e ed esteras 12:16 Small e Ur Ql SCT Strip.a uto Prot Ur 6288303 Negativ complet Ql 017 09 e ed Strip 12:16 Negativ e SCT Hgb Ur 6386379 Negativ complet Ql 017 09 e ed Strip.a 12:16 Negativ uto e SCT Bilirub 1588227 Negativ complet Ur Ql 017 09 e ed Strip 12:16 Negativ e SCT Ketones 5639866 Negativ complet Ur Ql 017 09 e ed Strip 12:16 Negativ e SCT Glucose 6054573 Negativ complet Ur 017 09 e ed Strip-m 12:16 Negativ Cnc e SCT Sp Gr 1.007 1.001-1 complet Ur 017 .030 ed Strip 12:16 pH Ur <= 5.0 5.0-8.0 complet Strip.a 017 ed uto 12:16 Clarity 9295792 Clear complet Ur 017 01 ed 12:16 Clear SCT Color 0823431 Yellow, complet Ur 017 09 Straw ed 12:16 Yellow color SCT UA Microscopic Pnl # Ur Auto (09-02-2016 12:16) Ref lab Automat complet test 017 ed ed method 12:16 Microsc opy Hyaline 0-6 0-6 complet Casts 017 /LPF ed Ur Ql 12:16 Auto [place]ou None None complet s 017 Seen Seen, ed #/area 12:16 /HPF 0-2 UrnS HPF Bacteri 4038700 None complet a Ur Ql 017 00 [...] Mykel Ele (IN) 3 10:31 3 15:27 [facility] Emergency ROSALBA HAMEED (ER) 3 13:53 3 15:37 [facility] Emergency ROSALBA Lucero (ER) 3 12:49 3 13:21 [facility] [place]
--- OUTSIDE RECORDS SUMMARY | 2017-06-04 18:15 | External Medical Summary Rpt ---
Author Author TIAN Connors, [facility] [employer] Address Unknown Phone Unavailable [...]
[2017-06-04 18:17] LABS: HEMOGLOBIN 12.7 g/dL (12.2-16.2)
--- NOTE | 2017-06-04 18:24 | Emergency Room Report ---
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 N Clinical Suspician of Infection? N Mental Status: 1 - Regular (Normal Baseline) Sepsis Risk:Low Sepsis Risk Have you (or family members/close friends) recently traveled outside the [place]? N If Yes, where/when: Have you had exposure to infectious disease within the past month? N TB? Other? Specify: Acute epistaxis, anterior, R nares. Had similar but brief episode two days ago, self resolving. Today, it has continued despite local pressure and ice pack application. She is on Eliquis for hx Afib. Pt of Dr. Marlow and Dr. Pompa. ALLERGIES Coded Allergies: sulfamethoxazole (Intermediate, I-RASH 06/20/15) dolasetron (HIGH BP 06/20/15) trimethoprim (I-RASH 06/20/15) Home Medications Active Scripts HYDROCODONE/ACETAMINOPHEN (Vicodin Hp 10-300 MG Tablet) 1 TAB PO BID #14 TAB Prov: 10/22/16 Methocarbamol (Robaxin 500MG) 500 MG PO BID #30 TAB Prov: 10/22/16 Reported Medications Sertraline Hcl (Sertraline HCl) 50 MG PO DAILY HYDROCODONE/ACETAMINOPHEN ([place] 10-325 Tablet) 1 TAB PO Q6HP PRN BACK PAIN ATORVASTATIN CALCIUM (ATORVASTATIN 20MG) 20 MG PO QHS Omeprazole (Prilosec 40mg Cap) 40 MG PO DAILY Ascorbic Acid (Vitamin C) 500 MG PO DAILY Brimonidine Tartrate (Brimonidine 0.15% Ophth Soln 5ML Bottle) 1 DROP IO TID Atenolol (Atenolol) 12.5 MG PO DAILY ASPIRIN (Aspirin 325MG) 325 MG PO DAILY Apixaban (Eliquis) 5 MG PO BID Levothyroxine Sodium (Levothyroxine 0.112MG) 0.112 MG PO DAILY #30 History Medical History General CAD? No Angina: No W[place]: No Hypertension? No Hyperlipidemia? Yes CHF? No DVT? Yes PE? Yes COPD? No Asthma? No Anemia? No GERD? Yes Gastric ulcers? No GI Bleed? No Hernia? No Thyroid Problems? No Hypothyroidism? Yes CVA? No Seizures? No Diabetes? No Insulin Dependent: No Insulin Pump: No Home FSBS? No Renal Insuffiency? No End Stage Renal Disease? No UTI? Yes Stones? No BPH? No GB Disease: Yes Nephritic Syndrome? No Asplenia? No Hepatitis? No Sickle Cell Disease? No Arthritis? Yes Migraines? No Cataracts? Yes Glaucoma? Yes MRSA? No HIV? No TB? No Anxiety? No Depression? No Cancer? Yes Site: L BREAST More? Yes Additional hx: Paroxysmal AFIB Immunization Hx DT/Tetanus > 10 Years Ago Flu [id number] Flu Season Pneumonia Received In Past Surgical Hx Previous Surgery?Y LEFT KNEE REPLACEMENT CHOLECYSTECTOMY D AND C RECTAL FISTULA REPAIR LEFT LUMPECTOMY R ROTATOR CUFF REPAIR RIGHT TOTAL KNEE REPLACEM BUNIONECTOMY RT. ELBOW REPLACEMENT SENTINAL NODE BIOPSY LT CATARACT BILAT Family History Family Hx Diabetes Yes CAD Yes Hypertension No Hyperlipidemia Yes Cancer No TB No Social History Smoking Hx Smoker: Never Smoker Tobacco: No Packs/day N/A Alcohol Alcohol: No Review of Systems All Other Systems Reviewed and Negative ENT see HPI. Physical Exam Vital Signs Vital Signs Date Time Temp Pulse Resp B/P Pulse O2 O2 Flow FiO2 Ox Delivery Rate 06/04 1733 98.1 65 18 162/93 98 General Appearance normal appearance, WD/WN (active acute epistaxis) Eye Exam - bilateral eye normal exam, bilateral eye PERRL, bilateral eye EOMI Ear, Nose, Throat steady trickle of blood from R nares, area of bleeding to lateral inner edge as well as posteriorly. No septal hematoma; septum appears fairly straight. L nares not involved. OP is wet with no posterior bleeding noted. Neck normal inspection, non-tender, supple, full range of motion Respiratory Status Yes: trachea midline. No: respiratory distress. Cardiovascular no peripheral edema Strength 5 Upper Ext (L), 5 Upper Ext (R), 5 Lower Ext (L), 5 Lower Ext (R) Neurologic alert, dictating transcribing machine servicer II-XII nml as tested, normal exam, no motor/sensory deficits, oriented x 3 Glascow Coma Scale Glascow Coma Scale Response Value EYE response: 4 Spontaneously 4 MOTOR response: 6 OBEYS 6 VERBAL response: 5 Oriented & Converses 5 Total 15 Skin intact (see above) Medical Decision Making LABS/Meds/Orders Pt receiving controlled substance in ED? No Results/Orders Laboratory Tests 06/04/171805: PT 11.0, INR 1.02, APTT 29.4, WBC 5.2, RBC 4.34, Hgb 12.7, Hct 40.2, MCV 92.5, RDW 13.8, Plt Count 241, MPV 7.8, Gran % 64.1, Gran # 3.3, Lymphocytes % 26.3, Monocytes % 6.1, Eosinophils % 2.6, Basophils % 0.9, Lymphocytes # 1.4, Monocytes # 0.3, Eosinophils # 0.1, Basophils # 0.1, PUBS MCHC 31.5 L, MCH 29.2 Current Medication Orders Sig/Christina Start time Last Medication Dose Route Stop Time Status Admin Lidocaine HCl 0 .STK-MED ONE 06/04 1752 DC .ROUTE Sodium Chloride 1,000 ML .STK-MED ONE 06/04 1752 DC IV Sodium Chloride 10 ML PRN PRN 06/04 1745 AC IV 06/05 1738 Oxymetazoline HCl 0 .STK-MED ONE 06/04 1741 DC .ROUTE Silver Nitrate/ 0 .STK-MED ONE 06/04 1741 DC Potassium Nitrate EX Cocaine HCl 0 .STK-MED ONE 06/04 1740 DC .ROUTE Orders Procedure Date/time Status IV SALINE LOCK 06/04 1739 Active PARTIAL THROMBOPLASTIN TIME 06/04 1739 Complete PROTHROMBIN TIME 06/04 1739 Complete CBC WITH AUTO DIFF 06/04 1739 Complete Progress ED Progress Notes 1 Date 06/04/17 Time 1832 Comment Patient c/o pressure to right side of face, so about 0.5 ML of sterile water removed and will continue to observe. Scant bleeding briefly, so fluid replaced and bleeding controlled immediately. ED Progress Notes 2 Date 06/04/17 Time 1839 Comment Pt doing well now. Stable for d/c. Procedures Epistaxis Epistaxis care Type/contributing factors Present: Anterior bleed, Other related hx/issues (on Eliquis). No: Posterior bleed, Uncontrolled HTN, Takes ASA, Takes Plavix, Takes Coumadin. Medications used Neosynephrine, Viscous Xylocaine, Cocaine. Comment Patient still had significant discomfort during cautery with application of viscous Lidocaine only; subsequently given very small application of cocaine locally and was more comfortable with improved control of epistaxis. Cauterized laterally and posteriorly with only slight amount of fluid from right nares (a lot of it was medication gtts). Subsequently 5.5 cm RhinoRocket placed and filled with 4 ml sterile water. Bleeding controlled. Will obs. Treatment/care Silver Nitrate cautery, Anterior pack placed. No: Thermal cautery, Posterior pack placed, Nasal tampon placed. Comment No complications. Tolerated well. Departure Departure Time of Disposition 1833 Disposition DC Home or Self Care(routine) Clinical Impression Primary Impression: Anterior epistaxis Condition STABLE Referrals [facility] URBINA,Sylvester Carrero Patient Instructions DI for Nosebleed Additional Instructions Call Dr. Lilly for appointment Tuesday June 06, 2017, for packing removal. Continue the Vicodin you already take. Hold Eliquis for one dose. Your bloodwork is normal today. Discharge Counseling Counseled pt/family regarding diagnosis, test results, medications/RX, home care, follow up needs Prescriptions Current Visit Scripts Amoxicillin/Potassium Clav (Augmentin 875-125 Tablet) 1 EACH PO BID #20 TAB ED Critical Care Critical Care No at 1840
[2017-06-04] MEDS ORDERED: AUGMENTIN 875-1 EACH PO (18:40)
[2017-06-04 19:00] VITALS: BP 164/68
== END 2017-06-04 19:01 | disposition home or self-care (01) ==
LOC: ER 17:31
PROVIDERS: Emergency Medicine
PROC: 0W3Q7ZZ Control Bleeding in Respiratory Tract, Via Natural or Artificial Opening (ICD-10-PCS; principal; 2017-06-04)
DX: R04.0 Epistaxis (principal); K21.9 Gastro-esophageal reflux disease without esophagitis

== ENCOUNTER 2017-06-04 22:09 | Emergency (ER) | payer MEDICARE, OTHER ==
[~2017-06-04] VITALS: Ht 160 cm; Wt 68.0 kg
[~2017-06-04 22:09] MED LIST changes: +AUGMENTIN 875-1 EACH PO; +ELIQUIS2.5 MG PO
--- OUTSIDE RECORDS SUMMARY | 2017-06-04 22:35 | External Medical Summary Rpt | CCD ---
Demographics Preferred Language Bermudian Marital Status Unknown Yarsani Affiliation Unknown Race Unknown Ethnic Group Unknown Author Author , TIAN OVERTON Address Unknown Phone Immunization Unable to retrieve immunization data due to connection failure with Immunization Registry. Please try again later.
--- OUTSIDE RECORDS SUMMARY | 2017-06-04 22:35 | External Medical Summary Rpt ---
Author Author [employer], [employer] Organization [employer] Address Unknown Phone Unavailable Results INR in Blood by Coagulation assay Observa Value Referen Units Interpr Notes Date tion ce etation Range IS PATIENT ON ANTICOAGULANTS? N INR in 0.9 - 1.1 No Normal INDICATIO Jun 04 Blood by informati N 2016 6:06 Coagulati on in PM on assay source INR data RANGETHER APY FOR DVT, PE, ATRIAL FIB; 2.0 - 3.0PROPHY LAXIS FOR VTETHERAP Y FOR MECHANICA L HEART 2.5 - 3.5VALVE; PREVENTIO N OF SYSTEMICE MBOLISM SECONDARY TO AMI Prothromb 9.4 - SECONDS Normal No Jun 04 in time 11.8 informati 2016 6:06 (PT) in on in PM Platelet source poor data plasma by Coagulati on assay Activated partial thrombplastin time (aPTT) in Platelet poor plasma by Coagulation assay Observa Value Referen Units Interpr Notes Date tion ce etation Range IS PATIENT ON ANTICOAGULANTS? N Activated 23.6 - SECONDS Normal No Jun 04 partial 34.0 informati 2016 6:06 thrombpla on in PM stin time source (aPTT) data in Platelet poor plasma by Coagulati on assay CBC W Auto Differential panel in Blood Observa Value Referen Units Interpr Notes Date tion ce etation Range Basophils 0 - 0.2 K/MM3 Normal No Jun 04 informati 2016 6:06 [#/volume on in PM ] in source Blood by data Automated count Basophils 0.1 - 2.0 % Normal No Jun 4 /100 informati 2016 6:06 leukocyte on in PM s in source Blood by data Automated count Eosinophi 0.0 - 0.4 K/mm3 Normal No Jun 04 ls informati 2016 6:06 [#/volume on in PM ] in source Blood by data Automated count Eosinophi 0.1 - % Normal No Jun 04 ls/100 12.0 informati 2016 6:06 leukocyte on in PM s in source Blood by data Automated count Granulocy 1.8 - 7.8 K/mm3 Normal No Jun 4 harvey informati 2016 6:06 [#/volume on in PM ] in source Blood by data Automated count Granulocy 37.0 - % Normal No Jun 4 harvey/100 80.0 informati 2017 6:06 leukocyte on in PM s in source Blood by data Automated count Hematocri 37.0 - % Normal No Jun 04 t [Volume 47.0 informati 2016 6:06 on in PM Fraction] source of Blood data Hemoglobi 12.2 - g/dL No No Jun 04 n 16.2 informati informati 2016 6:06 [Mass/vol on in on in PM ume] in source source Blood data data Lymphocyt 0.7 - 4.5 K/mm3 Normal No Jun 04 es informati 2016 6:06 [#/volume on in PM ] in source Unspecifi data ed specimen by Automated count Lymphocyt 10 - 50.0 % Normal No Jun 04 es informati 2016 6:06 [#/volume on in PM ] in source Unspecifi data ed specimen by Automated count Erythrocy 27 - 31.2 pg Normal No Jun 04 te mean informati 2016 6:06 corpuscul on in PM ar source hemoglobi data n [Entitic mass] Erythrocy 31.8 - g/dl Low No Jun 04 te mean 35.4 informati 2016 6:06 corpuscul on in PM ar source hemoglobi data n concentra tion [Mass/vol ume] by Automated count Erythrocy 82.2 - fl Normal No Jun 04 te mean 97.8 informati 2016 6:06 corpuscul on in PM ar volume source [Entitic data volume] by Automated count Monocytes 0.1 - 1.0 K/mm3 Normal No Jun 04 informati 2016 6:06 [#/volume on in PM ] in source Blood by data Automated count Monocytes 1.7 - 9.3 % Normal No Jun 04 /100 informati 2017 6:06 leukocyte on in PM s in source Blood by data Automated count Platelet 7.4 - fl Normal No Jun 04 mean 10.4 informati 2016 6:06 volume on in PM [Entitic source volume] data in Blood by Automated count Platelets 142 - 424 K/mm3 Normal No Jun 4 informati 2016 6:06 [#/volume on in PM ] in source Blood data Erythrocy 4.2 - 5.4 M/mm3 Normal No Jun 04 harvey informati 2016 6:06 [#/volume on in PM ] in source Amniotic data fluid Erythrocy 11.5 - % Normal No Jun 04 te 17.5 informati 2016 6:06 distribut on in PM ion width source [Entitic data volume] by Automated count Leukocyte 4.8 - K/MM3 Normal No Jun 04 s 10.8 informati 2016 6:06 [#/volume on in PM ] in source Blood data Comprehensive metabolic 2000 panel in Serum or Plasma Observa Value Referen Units Interpr Notes Date tion ce etation Range Albumin/G 1.1 - 1.8 No Normal No Oct 3 lobulin informati informati 2016 4:02 [Mass on in on in PM ratio] in source source Serum or data data Plasma Albumin 3.4 - 5.0 gm/dL Normal No Oct 3 [Mass/vol informati 2016 4:02 ume] in on in PM Serum or source Plasma data Alkaline 46 - 116 U/L Normal No Oct 3 phosphata informati 2016 4:02 se on in PM [Enzymati source c data activity/ volume] in Serum or Plasma Bilirubin 0.2 - 1.0 mg/dL Normal No Oct 3 .total informati 2016 4:02 [Mass/vol on in PM ume] in source Serum or data Plasma Urea 7 - 18 mg/dL Normal No Oct 3 nitrogen informati 2016 4:02 [Mass/vol on in PM ume] in [...] Normal No Oct 3 dioxide, 32.0 informati 2016 4:02 total on in PM [Moles/vo source lume] in data Serum or Plasma Creatinin 0.55 - mg/dL Normal No Oct 3 e 1.02 informati 2016 4:02 [Mass/vol on in PM ume] in [...] Sodium 136 - 145 mmoL/L Normal No Oct 3 [Moles/vo informati 2016 4:02 lume] in on in PM Serum or source Plasma data Aspartate 15 - 37 U/L Normal No May 03 informati 2016 4:02 aminotran on in PM sferase source [Enzymati data c activity/ volume] in Serum or Plasma Alanine 12 - 78 U/L Normal No May 3 aminotran informati 2016 4:02 sferase on in PM [Enzymati source c data activity/ volume] in Serum or Plasma Protein 6.4 - 8.2 gm/dL Normal No May 3 [Mass/vol informati 2016 4:02 ume] in on in PM Serum or source Plasma data Thyroxine (T4) free [Mass/volume] in Serum or Plasma Observa Value Referen Units Interpr Notes Date tion ce etation Range Thyroxine 0.76 - ng/dL Normal No May 3 (T4) 1.46 informati 2016 4:02 free on in PM [Mass/vol source ume] in data Serum or Plasma Thyrotropin [Units/volume] in Serum or Plasma Observa Value Referen Units Interpr Notes Date tion ce etation Range Thyrotrop 0.358 - uIU/ml No No May 3 in 3.740 informati informati 2016 4:02 [Units/vo on in on in PM lume] in source source Serum or data data Plasma
--- OUTSIDE RECORDS SUMMARY | 2017-06-04 22:35 | External Medical Summary Rpt | CCD ---
Demographics Preferred Language Mozambican Marital Status Unknown Rastafari Affiliation Unknown Race Unknown Ethnic Group Unknown Author Author , TIAN OVERTON Address Unknown Phone Immunization Unable to retrieve immunization data due to connection failure with Immunization Registry. Please try again later.
--- OUTSIDE RECORDS SUMMARY | 2017-06-04 22:35 | External Medical Summary Rpt | CCD ---
Author Author , TIAN Organization TIAN Address Unknown Phone [email or web address] Care Team Providers Care Telecom Specialist Name Role Phone ABIGAIL HAMEED MD, Unavailable Unavailable ABIGAIL Marlow MD, Unavailable Unavailable Luigi Marlow MD Purpose Continuity of Care Document - 02-25-2013 through 2016 Problems Code Diagnosis DOS Provider Status 305.00 305.00 03-19-2013 [facility] C 401.9 401.9 03-19-2013 [facility] 427.89 427.89 03-19-2013 [facility] CARDI[facility] DYSRHYTHMIA [facility] S NEC 733.6 733.6 03-19-2013 [facility] 244.9 Hypothyroid [facility] 272.4 Hyperlipide [facility] [id number] History of [facility] [id number] Active [facility] [id number] Chronic [facility] E03.9 HYPOTHYROID IS, UNSPECIFIED I48.91 UNSPECIFIED ATRIAL FIBRILLATIO N M54.5 LOW BACK PAIN Z78.0 ASYMPTOMATI C MENOPAUSAL STATE Z79.891 [facility] (CURRENT) USE OF OPIATE ANALGESIC Z79.899 OTHER [facility] (CURRENT) DRUG THERAPY Allergies, Adverse Reactions, Alerts Type Drug Allergy [...] Order Detail nces retati t Range on Activated partial thromboplastin time (a (06-04-2017 18:06) Comment: IS PATIENT ON ANTICOAGULANTS? N Activat = 29.4 23.6-34 complet ed 017 SECONDS .0 ed partial 18:06 thrombo plastin time (a Whole blood INR measurement (06-04-2017 18:06) Comment: IS PATIENT ON ANTICOAGULANTS? N Prothro = 11.0 9.4-11. complet mbin 017 SECONDS 8 ed time 18:06 (PT) in platele t poor p Whole = 1.02 0.9-1.1 complet blood 017 ed INR 18:06 measure ment Comment: INDICATION INR RANGE Comment: Comment: THERAPY FOR DVT, PE, ATRIAL FIB; 2.0 - 3.0 Comment: PROPHYLAXIS FOR VTE Comment: Comment: THERAPY FOR MECHANICAL HEART 2.5 - 3.5 Comment: VALVE; PREVENTION OF SYSTEMIC Comment: EMBOLISM SECONDARY TO AMI CBC w auto diff (06-04-2017 18:06) Blood = 5.2 4.8-10. complet leukocy 017 K/MM3 8 ed harvey 18:06 count (number /volume ) Automat = 13.8 11.5-17 complet ed 017 % .5 ed erythro 18:06 cyte distrib ution width Red = 4.34 4.2-5.4 complet blood 017 M/mm3 ed cell 18:06 count Blood = 241 142-424 complet platele 017 K/mm3 ed t count 18:06 Automat = 7.8 7.4-10. complet ed 017 fl 4 ed blood 18:06 platele t mean volume ayanna Chelan % = 6.1 % 1.7-9.3 complet 017 ed 18:06 Absolut = 0.3 0.1-1.0 complet e 017 K/mm3 ed monocyt 18:06 e count Automat = 92.5 82.2-97 complet ed 017 fl .8 ed erythro 18:06 cyte mean corpusc ular v Automat = 31.5 31.8-35 complet ed 017 g/dl .4 ed erythro 18:06 cyte mean corpusc ular h Mean = 29.2 27-31.2 complet corpusc 017 pg ed ular 18:06 hemoglo bin (MCH) determ Blood = 3.3 1.8-7.8 complet granulo 017 K/mm3 ed cytes 18:06 automat ed count (numb Automat = 2.6 % 0.1-12. complet ed 017 0 ed blood 18:06 eosinop hils/10 0 leukocy t Automat = 0.1 0.0-0.4 complet ed 017 K/mm3 ed blood 18:06 eosinop hil count Baso % = 0.9 % 0.1-2.0 complet 017 ed 18:06 Lymphoc = 26.3 10-50.0 complet yte 017 % ed count, 18:06 blood, automat ed Absolut = 1.4 0.7-4.5 complet e 017 K/mm3 ed lymphoc 18:06 yte count Blood = 12.7 12.2-16 complet hemoglo 017 g/dL .2 ed bin 18:06 measure ment (mass/v olum Blood = 40.2 37.0-47 complet hematoc 017 % .0 ed rit 18:06 (volume fractio n) Granulo = 64.1 37.0-80 complet cyte 017 % .0 ed percent 18:06 age Automat = 0.1 0-0.2 complet ed 017 K/MM3 ed blood 18:06 basophi l count (count/ vo Bas Metab 1999 Pnl SerPl (09-21-2016 11:33) Comment: Verify with Lab Meter: [id number] Timber Sizer: [id number] Ramona Bates Glucose 107 70-130 complet BldC 017 mg/dL ed Glucomt 11:33 r-mCnc Bas Metab 1999 Pnl SerPl (09-21-2016 07:37) Comment: Verify with Lab Meter: [id number] Timber Sizer: [id number] Esa Casper Glucose 93 70-130 complet BldC 017 mg/dL ed Glucomt 07:37 r-mCnc Bas Metab 1999 Pnl SerPl (09-20-2016 20:59) Comment: Meter: [id number] Timber Sizer: [id number] Denver Reyes Glucose 111 70-130 complet BldC 017 mg/dL ed Glucomt 20:59 r-mCnc Bas Metab 1999 Pnl SerPl (09-20-2016 16:36) Comment: Meter: [id number] Timber Sizer: [id number] Erick Szymanski Glucose 103 70-130 complet BldC 017 mg/dL ed Glucomt 16:36 r-mCnc Bas Metab 2000 Pnl SerPl (09-20-2016 12:12) Comment: Meter: [id number] Timber Sizer: [id number] Erick Szymanski Glucose 104 70-130 complet BldC 017 mg/dL ed Glucomt 12:12 r-mCnc Bas Metab 2000 Pnl SerPl (09-20-2016 07:55) Comment: Meter: [id number] Timber Sizer: [id number] Erick Szymanski Glucose 107 70-130 complet BldC 017 mg/dL ed Glucomt 07:55 r-mCnc Bas Metab 1999 Pnl SerPl (09-19-2016 20:45) Comment: Meter: [id number] Timber Sizer: [id number] Denver Reyes Glucose 116 70-130 complet BldC 017 mg/dL ed Glucomt 20:45 r-mCnc Bas Metab 2000 Pnl SerPl (09-19-2016 16:39) Comment: Meter: [id number] Timber Sizer: [id number] Bita Cruz Glucose 108 70-130 complet BldC 017 mg/dL ed Glucomt 16:39 r-mCnc Bas Metab 1999 Pnl SerPl (09-19-2016 11:33) Comment: Meter: [id number] Timber Sizer: [id number] Bita Cruz Glucose 147 70-130 complet BldC 017 mg/dL ed Glucomt 11:33 r-mCnc Bas Metab 1999 Pnl SerPl (09-19-2016 07:48) Comment: Meter: [id number] Timber Sizer: [id number] Bita Cruz Glucose 109 70-130 complet BldC 017 mg/dL ed Glucomt 07:48 r-mCnc Hgb+Hct Pnl Bld (09-19-2016 05:11) Hct VFr 30.1 % 34.5-44 complet Bld 017 .0 ed Auto 05:11 Hgb 9.6 11.5-15 complet Bld-mCn 017 g/dL .5 ed c 05:11 Bas Metab 1999 Pnl SerPl (09-18-2016 20:25) Comment: Meter: [id number] Timber Sizer: [id number] Stacey Peterson Glucose 122 70-130 complet BldC 017 mg/dL ed Glucomt 20:25 r-mCnc Bas Metab 2000 Pnl SerPl (09-18-2016 15:57) Comment: Meter: [id number] Timber Sizer: [id number] Troy Radha [place] Glucose 131 70-130 complet BldC 017 mg/dL ed Glucomt 15:57 r-mCnc Bas Metab 2000 Pnl SerPl (09-18-2016 11:27) Comment: Meter: [id number] Timber Sizer: [id number] Troy Garcia D Glucose 09-18- 155 70-130 complet BldC 017 mg/dL ed Glucomt 11:27 r-mCnc Bas Metab 1999 Pnl SerPl (09-18-2016 06:55) Comment: Meter: [id number] Timber Sizer: [id number] Troy Garcia D Glucose 144 70-130 complet BldC 017 mg/dL ed Glucomt 06:55 r-mCnc CBC (hemogram) Bld Auto (09-18-2016 05:21) Platele 09-18- 185 150-450 complet t # Bld 017 10*3/mm ed Auto 05:21 3 PMV Bld 09-18-2 10.6 fL 6.0-12. complet Auto 017 0 ed 05:21 RDW RBC 02-18-2 50.0 fl 37.0-54 complet Auto 017 .0 ed 05:21 RDW RBC 02-18-2 14.0 % 11.3-14 complet 017 .5 ed Auto-Rt 05:21 o MCHC 02-18-2 32.5 32.0-36 complet RBC 017 g/dL .0 ed Auto-mC 05:21 nc MCH RBC -18-2 31.8 pg 27.0-31 complet Qn 017 .0 ed Auto 05:21 MCV RBC -18-2 97.6 fL 80.0-99 complet Auto 017 .0 ed 05:21 Hct VFr -18-2 32.9 % 34.5-44 complet Bld 017 .0 ed Auto 05:21 Hgb -18-2 10.7 11.5-15 complet Bld-mCn 017 g/dL .5 ed c 05:21 RBC # 02-18-2 3.37 3.89-5. complet Bld 017 10*6/mm 14 ed Auto 05:21 3 WBC 02-18-2 10.53 3.50-10 complet nRBC 017 10*3/mm .80 ed cor # 05:21 3 Bld Bas Metab 1999 Pnl SerPl (09-18-2016 05:21) Comment: [employer] Guidelines Comment: Comment: Stage Description GFR Comment: 1 Normal or High 90+ Comment: 2 Mild decrease 60-89 Comment: 3 Moderate decrease 30-59 Comment: 4 Severe decrease 15-29 Comment: 5 Kidney failure <15 Anion 09-18-2 4.0 3.0-11. complet Gap3 017 mmol/L 0 ed SerPl-s 05:21 Cnc BUN/Cre 2 15.7 7.0-25. complet at 017 0 ed [...] 017 mmol/L ed Bld-sCn 05:21 c Sodium 136 132-146 complet Bld-sCn 017 mmol/L ed c 05:21 Creat 0.70 0.60-1. complet Bld-mCn 017 mg/dL 30 ed c 05:21 BUN 11 9-23 complet Bld-mCn 017 mg/dL ed c 05:21 Glucose 175 70-100 complet 017 mg/dL ed Bld-mCn 05:21 c Bas Metab 1999 Pnl SerPl (09-17-2016 21:24) Comment: Meter: [id number] Timber Sizer: [id number] Braxton Rangel Glucose 219 70-130 complet BldC 017 mg/dL ed Glucomt 21:24 r-mCnc Bas Metab 1999 Pnl SerPl (09-17-2016 18:26) Comment: Meter: [id number] Timber Sizer: [id number] Niya Bell Glucose 150 70-130 complet BldC [...] ed Ur Ql 16:18 E.U./dL Strip Nitrite 1594303 Negativ complet Ur Ql 017 09 e ed Strip 16:18 Negativ e SCT Leukocy 3826719 Negativ complet te 017 09 e ed esteras 16:18 Negativ e Ur Ql e SCT Strip.a uto Prot Ur 9348312 Negativ complet Ql 017 09 e ed Strip 16:18 Negativ e SCT Hgb Ur 4872987 Negativ complet Ql 017 09 e ed Strip.a 16:18 Negativ uto e SCT Bilirub 8173079 Negativ complet Ur Ql 017 09 e ed Strip 16:18 Negativ e SCT Ketones 4689078 Negativ complet Ur Ql 017 09 e ed Strip 16:18 Negativ e SCT Glucose 9007824 Negativ complet Ur 017 09 e ed Strip-m 16:18 Negativ Cnc e SCT Sp Gr 1.007 1.001-1 complet Ur 017 .030 ed Strip 16:18 pH Ur 5.5 5.0-8.0 complet Strip.a 017 ed uto 16:18 Clarity [id number] Clear complet Ur 017 01 ed 16:18 Clear SCT Color 2033513 Yellow, complet Ur 017 09 Straw ed 16:18 Yellow color SCT Bas Metab 2000 Pnl SerPl (09-02-2016 12:16) Comment: [employer] Guidelines Comment: Comment: Stage Description GFR Comment: 1 Normal or High 90+ Comment: 2 Mild decrease 60-89 Comment: 3 Moderate decrease 30-59 Comment: 4 Severe decrease 15-29 Comment: 5 Kidney failure <15 Anion 2 3.0 3.0-11. complet Gap3 017 mmol/L 0 [...] complet 017 mg/dL ed Bld-mCn 12:16 c CBC (hemogram) Bld Auto (09-02-2016 12:16) Platele 213 150-450 complet t # Bld 017 10*3/mm ed Auto 12:16 3 PMV Bld 10.5 fL 6.0-12. complet Auto 017 0 ed 12:16 RDW RBC 49.9 fl 37.0-54 complet Auto 017 .0 ed 12:16 RDW RBC 13.9 % 11.3-14 complet 017 .5 ed Auto-Rt 12:16 o MCHC 32.9 32.0-36 complet RBC 017 g/dL .0 ed Auto-mC 12:16 nc MCH RBC 32.1 pg 27.0-31 complet Qn 017 .0 ed Auto 12:16 MCV RBC 97.7 fL 80.0-99 complet Auto 017 .0 ed 12:16 Hct VFr 43.2 % 34.5-44 complet Bld 017 .0 ed Auto 12:16 Hgb 14.2 11.5-15 complet Bld-mCn 017 g/dL .5 ed c 12:16 RBC # 09-02-2 4.42 3.89-5. complet Bld 017 10*6/mm 14 ed Auto 12:16 3 WBC 5.68 3.50-10 complet nRBC 017 10*3/mm .80 ed cor # 12:16 3 Bld Hgb A1c Bld (09-02-2016 12:16) Comment: The [place] [employer] recommends maintenance of Hemoglobin A1C at 7.0% or lower. Goals for Hemoglobin A1C reduction may need to be modified if hypoglycemia is a problem. Hgb A1c 5.90 % 4.80-5. complet MFr 017 60 ed Bld 12:16 UA Dipstick Pnl Ur (09-02-2016 12:16) Urobili 0.2 0.2 - complet nogen 017 E.U./dL 1.0 ed Ur Ql 12:16 E.U./dL Strip Nitrite 1512424 Negativ complet Ur Ql 017 09 e ed Strip 12:16 Negativ e SCT Leukocy 9110733 Negativ complet te 017 04 e ed esteras 12:16 Small e Ur Ql SCT Strip.a uto Prot Ur 2050986 Negativ complet Ql 017 09 e ed Strip 12:16 Negativ e SCT Hgb Ur 2248602 Negativ complet Ql 017 09 e ed Strip.a 12:16 Negativ uto e SCT Bilirub 3495915 Negativ complet Ur Ql 017 09 e ed Strip 12:16 Negativ e SCT Ketones 5222887 Negativ complet Ur Ql 017 09 e ed Strip 12:16 Negativ e SCT Glucose 3109816 Negativ complet Ur 017 09 e ed Strip-m 12:16 Negativ Cnc e SCT Sp Gr 1.007 1.001-1 complet Ur 017 .030 ed Strip 12:16 pH Ur <= 5.0 5.0-8.0 complet Strip.a 017 ed uto 12:16 Clarity [id number] Clear complet Ur 017 01 ed 12:16 Clear SCT Color 5936756 Yellow, complet Ur 017 09 Straw ed 12:16 Yellow color SCT UA Microscopic Pnl # Ur Auto (09-02-2016 12:16) Ref lab Automat complet test 017 ed ed method 12:16 Microsc opy Hyaline 0-6 0-6 complet Casts 017 /LPF ed Ur Ql 12:16 Auto [place] None None complet s 017 Seen Seen, ed #/area 12:16 /HPF 0-2 UrnS HPF Bacteri 5971774 None complet a Ur Ql 017 00 Not Seen, ed Auto 12:16 detecte Trace d SCT /HPF WBC Ur 3-5 None complet Ql Auto 017 /HPF Seen ed 12:16 RBC # 0-2 None complet Ur 017 /HPF Seen, ed 12:16 0-2 COMPREHENSIVE METABOLIC PANEL (05-28-2013 10:20) Glucose 94 [...] SerPl-s 013 mmoL/L ed Cnc 10:20 Potassi 10-28-2 4.2 3.5-5.1 complet um 013 mmoL/L ed SerPl-s 10:20 Cnc Chlorid 105 98-107 complet e 013 mmoL/L ed SerPl-s 10:20 Cnc CO2 29 21.0-32 complet SerPl-s 013 mmoL/L .0 ed Cnc 10:20 Calcium 05-28- 8.9 8.5-10. complet 013 mg/dL 1 ed SerPl-m 10:20 Cnc Prot 05-28- 6.9 6.4-8.2 complet SerPl-m 013 gm/dL ed Cnc 10:20 Albumin 05-28- 3.3 3.4-5.0 complet 013 gm/dL ed SerPl-m 10:20 Cnc Globuli 3.6 1.3-3.2 complet n 013 gm/dL ed Ser-mCn 10:20 c Albumin 0.9 UNK 1.1-1.8 complet /Glob 013 ed SerPl-m 10:20 Rto Bilirub 0.5 0.2-1.0 complet 013 mg/dL ed SerPl-m 10:20 Cnc AST 21 U/L 15-37 complet SerPl-c 013 ed Cnc 10:20 ALT 30 U/L 30-65 complet SerPl-c 013 ed Cnc 10:20 ALP 05-28- 118 U/L 50-136 complet SerPl-c 013 ed Cnc 10:20 THYROID STIM HORMONE (05-28-2013 10:20) THYROID 3.27 0.358-3 complet STIM 013 uIU/ml .740 ed HORMONE 10:20 BNP Bld-mCnc (05-28-2013 10:20) BNP 05-28- 152 0-100 complet Bld-mCn 013 pg/mL ed c 10:20 CBC with AUTO DIFF (05-28-2013 10:20) WBC # 05-28-2 4.3 4.8-10. complet Bld 013 K/MM3 8 [...] complet Auto 013 .5 ed 10:20 Platele 05-28-2 239 142-424 complet t Bld 013 K/mm3 ed Ql 10:20 Manual MEAN 7.6 fl 7.4-10. complet PLATELE 013 4 ed T 10:20 VOLUME Granulo 2 55.4 % 37.0-80 complet cytes 013 .0 [...] 013 K/mm3 ed Bld 10:20 Auto Monocyt 10-28-2 0.4 0.1-1.0 complet es # 013 K/mm3 ed Bld 10:20 Auto Eosinop 28-2 0.2 0.0-0.4 complet hil # 013 K/mm3 ed Bld 10:20 Auto Basophi 05-28-2 0.1 0-0.2 complet ls # 013 K/MM3 ed Bld 10:20 Auto COMPREHENSIVE METABOLIC PANEL (08-19-2013 13:45) Glucose 90 74-106 complet 013 mg/dL ed Bld-mCn 13:45 c BUN 03-19- 10 7-18 complet Bld-mCn 013 mg/dL ed c 13:45 Creat 0.9 0.6-1.0 complet SerPl-m 013 mg/dL ed Cnc 13:45 ESTIMAT 65 50-200 complet ED 013 ML/MIN ed CREATIN 13:45 INE CLEARAN CE GFR 60 59- complet (ESTIMA 013 ML/MIN ed BHARTI) 13:45 Sodium 139 136-145 complet SerPl-s 013 mmoL/L ed Cnc 13:45 Potassi 4.0 3.5-5.1 complet um 013 mmoL/L ed SerPl-s 13:45 Cnc Chlorid 103 98-107 complet e 013 mmoL/L ed SerPl-s 13:45 Cnc CO2 31 21.0-32 complet SerPl-s 013 mmoL/L .0 ed Cnc 13:45 Calcium 8.7 8.5-10. complet 013 mg/dL 1 ed SerPl-m 13:45 Cnc Prot 7.4 6.4-8.2 complet SerPl-m 013 gm/dL ed Cnc 13:45 Albumin 3.5 3.4-5.0 complet 013 gm/dL ed SerPl-m 13:45 Cnc Globuli 3.9 1.3-3.2 complet n 013 gm/dL ed Ser-mCn 13:45 c Albumin 03-19- 0.9 UNK 1.1-1.8 complet /Glob 013 ed SerPl-m 13:45 Rto Bilirub 03-19- 0.6 0.2-1.0 complet 013 mg/dL ed SerPl-m 13:45 Cnc AST 18 U/L 15-37 complet SerPl-c 013 ed Cnc 13:45 ALT 30 U/L 30-65 complet SerPl-c 013 ed Cnc 13:45 ALP 133 U/L 50-136 complet SerPl-c 013 ed Cnc 13:45 CBC with AUTO DIFF (03-19-2013 13:45) WBC # 08-19-2 4.5 4.8-10. complet Bld 013 K/MM3 8 ed Auto 13:45 RBC # 08-19-2 4.24 4.2-5.4 complet Bld 013 M/mm3 ed Auto 13:45 Hgb 08-19-2 12.4 12.2-16 complet Bld-mCn 013 g/dL .2 ed c 13:45 Hct Fr -19-2 38.6 % 37.0-47 complet Bld 013 .0 ed 13:45 MCV RBC 08-19-2 91.2 fl 82.2-97 complet 013 .8 ed 13:45 MCH RBC 08-19-2 29.2 pg 27-31.2 complet Qn 013 ed Auto 13:45 MEAN 08-19-2 32.0 31.8-35 complet CORPUSC 013 g/dl .4 ed ULAR 13:45 HGB CONC RDW RBC -19-2 14.5 % 11.5-17 complet Auto 013 .5 ed 13:45 Platele 08-19-2 255 142-424 complet t Bld 013 K/mm3 ed Ql 13:45 Manual MEAN --2 7.7 fl 7.4-10. complet PLATELE 013 4 ed T 13:45 VOLUME Granulo -19-2 58.4 % 37.0-80 complet cytes 013 .0 ed Fr Bld 13:45 Auto LYMPH % 08-19-2 29.3 % 10-50.0 complet 013 ed 13:45 Monocyt 08-19-2 7.3 % 1.7-9.3 complet es Fr 013 ed Bld 13:45 Auto Eosinop 08-19-2 3.5 % 0.1-12. complet hil Fr 013 0 ed Bld 13:45 Auto Basophi 08-19-2 1.4 % 0.1-2.0 complet ls Fr 013 ed Bld 13:45 Auto Granulo 08-19-2 2.6 1.8-7.8 complet cytes # 013 K/mm3 ed Bld 13:45 Auto Lymphoc 08-19-2 1.3 0.7-4.5 complet ytes Fr 013 K/mm3 ed Bld 13:45 Auto Monocyt 03-19-2 0.3 0.1-1.0 complet es # 013 K/mm3 ed Bld 13:45 Auto Eosinop 03-19-2 0.2 0.0-0.4 complet hil # 013 K/mm3 ed Bld 13:45 Auto Basophi 03-19-2 0.1 0-0.2 complet ls # 013 K/MM3 ed Bld 13:45 Auto URINALYSIS/COMPLETE (02-25-2013 12:30) URINE 02-25-2 YELLOW YELLOW complet COLOR 013 ed 12:30 URINE 02-25-2 Sl CLEAR complet APPEARA 013 Cloudy ed NCE 12:30 URINE 2 NEGATIV NEG complet GLUCOSE 013 E ed [...] Date Code Location Performer Type Date Inpatient CHRIS Marlow (IN) 3 10:31 3 15:27 [facility] ROSALBA HAMEED (ER) 3 13:53 3 15:37 [facility] Emergency ROSALBA Lucero (ER) 3 12:49 3 13:21 [facility] [place]
--- OUTSIDE RECORDS SUMMARY | 2017-06-04 22:35 | External Medical Summary Rpt | CCD ---
Author Author , TIAN Organization TIAN Address Unknown Phone [email or web address] Care Team Providers Care Maintenance Engineer Name Role Phone ABIGAIL HAMEED MD, Unavailable Unavailable ABIGAIL Marlow MD, Unavailable Unavailable Luigi Marlow MD Purpose Continuity of Care Document - 02-25-2013 through 2016 Problems Code Diagnosis DOS Provider Status 305.00 305.00 03-19-2013 [facility] C 401.9 401.9 03-19-2013 [place] [facility]89 427.89 03-19-2013 [place] [facility]ARDIAC [facility] DYSRHYTHMIA [facility] S NEC 733.6 733.6 03-19-2013 [facility] 244.9 Hypothyroid [facility] 272.4 Hyperlipide [facility] [id number] History of [facility] [id number] Active [facility] [id number] Chronic [facility] E03.9 HYPOTHYROID IS, UNSPECIFIED I48.91 UNSPECIFIED ATRIAL FIBRILLATIO N M54.5 LOW BACK PAIN Z78.0 ASYMPTOMATI C MENOPAUSAL STATE Z79.891 SKILLED NURSING (CURRENT) USE OF OPIATE ANALGESIC Z79.899 OTHER SKILLED NURSING (CURRENT) DRUG THERAPY Allergies, Adverse Reactions, Alerts [...] blood 18:06 platele t mean volume ayanna [place] % = 6.1 % 1.7-9.3 complet 017 [...] (09-21-2016 11:33) Comment: Verify with Lab Meter: [id number] Bakery Sales Clerk: [id number] Ramona Bates Glucose 107 70-130 complet BldC 017 mg/dL ed Glucomt 11:33 r-mCnc Bas Metab 1999 Pnl SerPl (09-21-2016 07:37) Comment: Verify with Lab Meter: [id number] Bakery Sales Clerk: [id number] Esa Casper Glucose 93 70-130 complet BldC 017 mg/dL ed Glucomt 07:37 r-mCnc Bas Metab 1999 Pnl SerPl (09-20-2016 20:59) Comment: Meter: [id number] Bakery Sales Clerk: [id number] Denver Reyes Glucose 111 70-130 complet BldC 017 mg/dL ed Glucomt 20:59 r-mCnc Bas Metab 1999 Pnl SerPl (09-20-2016 16:36) Comment: Meter: [id number] Bakery Sales Clerk: [id number] Erick Szymanski Glucose 103 70-130 complet BldC 017 mg/dL ed Glucomt 16:36 r-mCnc Bas Metab 2000 Pnl SerPl (09-20-2016 12:12) Comment: Meter: [id number] Bakery Sales Clerk: [id number] Erick Szymanski Glucose 104 70-130 complet BldC 017 mg/dL ed Glucomt 12:12 r-mCnc Bas Metab 2000 Pnl SerPl (09-20-2016 07:55) Comment: Meter: [id number] Bakery Sales Clerk: [id number] Erick Szymanski Glucose 107 70-130 complet BldC 017 mg/dL ed Glucomt 07:55 r-mCnc Bas Metab 1999 Pnl SerPl (09-19-2016 20:45) Comment: Meter: [id number] Bakery Sales Clerk: [id number] Denver Reyes Glucose 116 70-130 complet BldC 017 mg/dL ed Glucomt 20:45 r-mCnc Bas Metab 2000 Pnl SerPl (09-19-2016 16:39) Comment: Meter: [id number] Bakery Sales Clerk: [id number] Bita Cruz Glucose 108 70-130 complet BldC 017 mg/dL ed Glucomt 16:39 r-mCnc Bas Metab 1999 Pnl SerPl (09-19-2016 11:33) Comment: Meter: [id number] Bakery Sales Clerk: [id number] Bita Cruz Glucose 147 70-130 complet BldC 017 mg/dL ed Glucomt 11:33 r-mCnc Bas Metab 1999 Pnl SerPl (09-19-2016 07:48) Comment: Meter: [id number] Bakery Sales Clerk: [id number] Bita Cruz Glucose 109 70-130 complet BldC 017 mg/dL ed Glucomt 07:48 r-mCnc Hgb+Hct Pnl Bld (09-19-2016 05:11) Hct VFr 30.1 % 34.5-44 complet Bld 017 .0 ed Auto 05:11 Hgb 9.6 11.5-15 complet Bld-mCn 017 g/dL .5 ed c 05:11 Bas Metab 1999 Pnl SerPl (09-18-2016 20:25) Comment: Meter: [id number] Bakery Sales Clerk: [id number] Stacey Peterson Glucose 122 70-130 complet BldC 017 mg/dL ed Glucomt 20:25 r-mCnc Bas Metab 2000 Pnl SerPl (09-18-2016 15:57) Comment: Meter: [id number] Bakery Sales Clerk: [id number] Troy Radha [place] Glucose 131 70-130 complet BldC 017 mg/dL ed Glucomt 15:57 r-mCnc Bas Metab 2000 Pnl SerPl (09-18-2016 11:27) Comment: Meter: [id number] Bakery Sales Clerk: [id number] Troy Garcia D Glucose 09-18- 155 70-130 complet BldC 017 mg/dL ed Glucomt 11:27 r-mCnc Bas Metab 1999 Pnl SerPl (09-18-2016 06:55) Comment: Meter: [id number] Bakery Sales Clerk: [id number] Troy Garcia D Glucose 144 70-130 complet [...] 1999 Pnl SerPl (09-17-2016 21:24) Comment: Meter: [id number] Bakery Sales Clerk: [id number] Braxton Rangel Glucose 219 70-130 complet BldC 017 mg/dL ed Glucomt 21:24 r-mCnc Bas Metab 1999 Pnl SerPl (09-17-2016 18:26) Comment: Meter: [id number] Bakery Sales Clerk: [id number] Niya Bell Glucose 150 70-130 complet BldC [...] ed Ur Ql 16:18 E.U./dL Strip Nitrite 4486170 Negativ complet Ur Ql 017 09 e ed Strip 16:18 Negativ e SCT Leukocy 1651346 Negativ complet te 017 09 e ed esteras 16:18 Negativ e Ur Ql e SCT Strip.a uto Prot Ur 7291579 Negativ complet Ql 017 09 e ed Strip 16:18 Negativ e SCT Hgb Ur 4245287 Negativ complet Ql 017 09 e ed Strip.a 16:18 Negativ uto e SCT Bilirub 1245644 Negativ complet Ur Ql 017 09 e ed Strip 16:18 Negativ e SCT Ketones 4592309 Negativ complet Ur Ql 017 09 e ed Strip 16:18 Negativ e SCT Glucose 3640301 Negativ complet Ur 017 09 e ed Strip-m 16:18 Negativ Cnc e SCT Sp Gr 1.007 1.001-1 complet Ur 017 .030 ed Strip 16:18 pH Ur 5.5 5.0-8.0 complet Strip.a 017 ed uto 16:18 Clarity 9430597 Clear complet Ur 017 01 ed 16:18 Clear SCT Color 3185339 Yellow, complet Ur 017 09 Straw ed [...] Hgb A1c Bld (09-02-2016 12:16) Comment: The [place] [employer] recommends maintenance of Hemoglobin A1C at 7.0% or lower. Goals for Hemoglobin A1C reduction may need to be modified if hypoglycemia is a problem. Hgb A1c 5.90 % 4.80-5. complet MFr 017 60 ed Bld 12:16 UA Dipstick Pnl Ur (09-02-2016 12:16) Urobili 0.2 0.2 - complet nogen 017 E.U./dL 1.0 ed Ur Ql 12:16 E.U./dL Strip Nitrite [id number] Negativ complet Ur Ql 017 09 e ed Strip 12:16 Negativ e SCT Leukocy [id number] Negativ complet te 017 04 e ed esteras 12:16 Small e Ur Ql SCT Strip.a uto Prot Ur [id number] Negativ complet Ql 017 09 e ed Strip 12:16 Negativ e SCT Hgb Ur [id number] Negativ complet Ql 017 09 e ed Strip.a 12:16 Negativ uto e SCT Bilirub [id number] Negativ complet Ur Ql 017 09 e ed Strip 12:16 Negativ e SCT Ketones [id number] Negativ complet Ur Ql 017 09 e ed Strip 12:16 Negativ e SCT Glucose [id number] Negativ complet Ur 017 09 e ed Strip-m 12:16 Negativ Cnc e SCT Sp Gr 1.007 1.001-1 complet Ur 017 .030 ed Strip 12:16 pH Ur <= 5.0 5.0-8.0 complet Strip.a 017 ed uto 12:16 Clarity [id number] Clear complet Ur 017 01 ed 12:16 Clear SCT Color [id number] Yellow, complet Ur 017 09 Straw ed 12:16 Yellow color SCT UA Microscopic Pnl # Ur Auto (09-02-2016 12:16) Ref lab Automat complet test 017 ed ed method 12:16 Microsc opy Hyaline 0-6 0-6 complet Casts 017 /LPF ed Ur Ql 12:16 Auto [place] None None complet s 017 Seen Seen, ed #/area 12:16 /HPF 0-2 UrnS HPF Bacteri [id number] None complet a Ur Ql 017 00 [...] CHRIS Marlow ([place]) 3 10:31 3 15:27 [facility] ROSALBA HAMEED (ER) 3 13:53 3 15:37 [facility] ROSALBA Lucero (ER) 3 12:49 3 13:21 [facility] [place]
[2017-06-04 23:22] VITALS: BP 176/114
== END 2017-06-05 00:57 | disposition left against medical advice (07) ==
LOC: ER 22:09
DX: R04.0 Epistaxis (principal)

== ENCOUNTER → 2017-06-10 | Outpatient (CLI) | payer MEDICARE, OTHER ==
--- NOTE | 2017-06-10 14:11 | CARDIOVASCULAR REPORT ---
"Cerebrovascular Exam Indications: 433.10 Occlusion/stenosis of carotid artery without cerebral infarction. IMPRESSIONS 1. The bilateral vertebral arteries are patent with normal antegrade flow. 2. Study suggests 50-69% stenosis involving the right internal carotid artery. No change from the study of 01-Jul-2016. 3. Study suggests 20-49% stenosis involving the left internal carotid artery. No change from the study of 01-Jul-2016. History: Risk factors: Hypertension. Carotid duplex study. Complete study and Doppler flow study including spectral analysis, color and chavez scale imaging. Location: Vascular laboratory. Patient status: Outpatient. Tables: Arterial flow: + +--------+--------+ |Location |V sys |V ed | + +--------+--------+ |Right CCA - proximal|106cm/s |21.2cm/s| + +--------+--------+ |Right CCA - distal |104cm/s |18.1cm/s| + +--------+--------+ |Right ECA |125cm/s |--------| + +--------+--------+ |Right ICA - proximal|81.7cm/s|17.5cm/s| + +--------+--------+ |Right ICA - mid |164cm/s |36.2cm/s| + +--------+--------+ |Right ICA - distal |130cm/s |39.1cm/s| + +--------+--------+ |Right vertebral |65.8cm/s|--------| + +--------+--------+ |Left CCA - proximal |91.1cm/s|15.7cm/s| + +--------+--------+ |Left CCA - distal |109cm/s |21.2cm/s| + +--------+--------+ |Left ECA |67.9cm/s|--------| + +--------+--------+ |Left ICA - proximal |40.9cm/s|11.9cm/s| + +--------+--------+ |Left ICA - mid |74.2cm/s|23.6cm/s| + +--------+--------+ |Left ICA - distal |107cm/s |30.2cm/s| + +--------+--------+ |Left vertebral |61.6cm/s|--------| + +--------+--------+ Velocity ratios: + + + + + + | |Right, V sys|Right, V ed|Left, V sys|Left, V ed| + + + + + + |Max ICA/dist CCA|1.58 |2.16 |0.98 |1.42 | + + + + + + (Report amended ) Electronically signed by: Albaro Jimenez [id number]"
== END ==
LOC: RT 06-06 08:00
DX: I65.23 Occlusion and stenosis of bilateral carotid arteries (principal)